=== PATIENT | male | born 1980 | race African-American/Black ===

== ENCOUNTER 2019-11-17 15:23 | Emergency (ER) | payer OTHER ==
[2019-11-17 15:47] VITALS: BP 114/71; PULSE 83; TEMP 98; BMI 33.2
--- NOTE | 2019-11-17 15:49 | PDOC ---
Rapid Medical Evaluation Time Seen by Provider: 11/17/19 15:46 Medical Evaluation: 11/17/19 15:46 This patient had a brief in-person evaluation in triage cc:s/p fall HPI: Patient reports twisted right ankle and fell in parking lot complaining of pain to right ankle PE:NAD unlabored breathing right ankle with swelling and right lateral malleoulus swelling Orders:xray ordered This patient will proceed to main ed for further evaluation
--- NOTE | 2019-11-17 17:29 | PDOC ---
History of Present Illness - General Chief Complaint: Injury Stated Complaint: INJURY, WORK RELATED Time Seen by Provider: 11/17/19 15:46 - History of Present Illness Initial Comments: 11/17/19 17:25 39-year-old male without comorbidities presents for right ankle pain. He describes an inversion type injury while walking into work today Past History - Past Medical History Allergies/Adverse Reactions: Allergies Allergy/AdvReac Type Severity Reaction Status Date / Time No Known Allergies Allergy Verified 11/17/19 15:47 Home Medications: Ambulatory Orders NK [No Known Home Medication] 11/17/19 COPD: No - Immunization History Immunization Up to Date: Yes - Psycho Social/Smoking Cessation Hx Smoking History: Never smoked Have you smoked in the past 12 months: No Information on smoking cessation initiated: No Hx Alcohol Use: No Drug/Substance Use Hx: No Review of Systems - Review of Systems Musculoskeletal: Yes: Joint Pain *Physical Exam - Vital Signs Last Vital Signs Temp Pulse Resp BP Pulse Ox 98.0 F 83 18 114/71 99 11/17/19 15:44 11/17/19 15:44 11/17/19 15:44 11/17/19 15:44 11/17/19 15:44 - Physical Exam 11/17/19 17:26 Ankle skin color and temperature normal range of motion is slightly limited. There is no tenderness about the proximal fibula or along its distal course. No tenderness about the medial lateral malleolus base of the fifth metatarsal or navicular. Mild tenderness over the ATFL without instability no gross sensorimotor deficits neurovascular intact. Medical Decision Making - Medical Decision Making 11/17/19 17:27 Weight-bear as tolerated crutches and Aircast follow-up with Ortho Discharge - Discharge Information Problems reviewed: Yes Clinical Impression/Diagnosis: Ankle sprain Condition: Stable Disposition: HOME - Admission No - Follow up/Referral Referrals: ON STAFF,NOT [Primary Care Provider] - - Patient Discharge Instructions Additional Instructions: You may weight-bear as tolerated with use of crutches in the Aircast Tylenol as directed for pain. Return to the emergency room for worsening symptoms. And without fail please follow-up with orthopedic surgery in 1 to 2 days for further evaluation and treatment options. - Post Discharge Activity Work/Back to School Note: Back to Work
== END 2019-11-17 17:40 | disposition home or self-care (01) ==
LOC: JERFT 15:23
PROC: 2W3QX1Z Immobilization of Right Lower Leg using Splint (ICD-10-PCS; principal; 2019-11-17)
DX: S93.401A Sprain of unspecified ligament of right ankle, initial encounter (principal); W18.39XA Other fall on same level, initial encounter; Y93.01 Activity, walking, marching and hiking; Y92.238 Other place in hospital as the place of occurrence of the external cause; Y99.0 Civilian activity done for income or pay
CPT/HCPCS: 73610-TC-RT-FY; 73630-TC-RT-FY; 99282-25